=== PATIENT | male | born 1980 | race Native Hawaiian/Other Pacific Islander ===

== ENCOUNTER 2017-12-01 04:29 | Emergency (ER) | payer OTHER ==
--- NOTE | 2017-12-01 06:26 | Cat Scan Report ---
FINAL REPORT EXAM: CT HEAD/BRAIN WO CON HISTORY: fall TECHNIQUE: Routine axial imaging was obtained of the brain without IV contrast. FINDINGS: The ventricular system is appropriate in size and is symmetric. There is no evidence of acute stroke or hemorrhage. The basal cisterns appear normal. There is a right parietal scalp hematoma. There is no evidence of skull fracture. The sinuses are clear. The mastoid air cells are well pneumatized. There are several acute fractures of the nasal bone with overlying soft tissue swelling. There is also left-sided preseptal soft tissue swelling. IMPRESSION: Left-sided preseptal soft tissue swelling with acute fractures of the nasal bone. Right parietal occipital scalp hematoma without skull fracture. No evidence of acute stroke or hemorrhage.
--- NOTE | 2017-12-01 06:36 | Cat Scan Report ---
FINAL REPORT EXAM: CT FACIAL BONES WO CON HISTORY: fall TECHNIQUE: Routine axial imaging was obtained of the facial bones without IV contrast with sagittal and coronal reconstructions. FINDINGS: There is a comminuted mildly depressed fracture of the nasal bone with overlying soft tissue swelling. There is additional soft tissue swelling overlying the left preseptal area extending along the anterior wall of the left maxillary sinus. The orbital rims and floors appear intact. The sinuses are clear. The zygomatic arches and mandible appear intact. IMPRESSION: Comminuted depressed fractures of the nasal bone with overlying soft tissue swelling. Soft tissue swelling overlying the left preseptal area and extending along the anterior wall of the left maxillary sinus.
--- NOTE | 2017-12-01 06:38 | Cat Scan Report ---
FINAL REPORT EXAM: CT CERVICAL SPINE WO CON HISTORY: nexus pos TECHNIQUE: Routine axial imaging was obtained of the cervical spine without IV contrast with sagittal and coronal reconstructions. FINDINGS: C7 is not adequately seen for evaluation on the examination. C1 through C6 are well identified. The disc heights and alignment appear normal. There is no evidence of fracture. The canal size is normal. The nerve roots exit normally. The prevertebral soft tissues and C1-C2 articulation appear intact. IMPRESSION: No abnormalities identified from skull base through the inferior margin of C6. C7 is not adequately seen for evaluation on the examination
[2017-12-01 09:23] LABS: Hematocrit 47.8 % (35.5-45.6); Hemoglobin 15.8 gm/dl (11.8-15.2); Mean Corpuscular HGB Conc 33 % (32-34); Mean Corpuscular Hemoglobin 28 pg (28-32); Mean Corpuscular Volume 85 fl (84-94); Platelet Count 231 K/mm3 (140-440); Red Blood Count 5.66 M/mm3 (3.65-5.03); Red Cell Distribution Width 13.4 % (13.2-15.2)
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
[2017-12-01 09:45] LABS: Alanine Aminotransferase 78 units/L (7-56); BUN/Creatinine Ratio 16; Blood Urea Nitrogen 11 mg/dL (9-20); Calcium 9.1 mg/dL (8.4-10.2); Hemolysis Index 33
[2017-12-01 11:02] LABS: Bilirubin,Urine NEG (Negative); Blood,Urine SM (Negative); Color,Urine Yellow (Yellow); Mucus,Urine FEW /HPF; Nitrite,Urine NEG (Negative); Protein,Urine <15 mg/dL mg/dL (Negative); Urobilinogen,Urine < 2.0 mg/dL (<2.0)
[2017-12-01 11:21] LABS: Amphetamine Screen,Urine PRESUMPTIVE NEGATIVE; Benzodiazepines Screen,Urine PRESUMPTIVE NEGATIVE; Cannabinoid Screen,Urine PRESUMPTIVE NEGATIVE; Cocaine Screen,Urine PRESUMPTIVE NEGATIVE; Methadone Screen,Urine PRESUMPTIVE NEGATIVE; Opiate Screen,Urine PRESUMPTIVE NEGATIVE
[2017-12-01 11:41] VITALS: BP 127/82
[2017-12-01] MEDS ORDERED: ROCEPHIN/NS 1 GM/50 ML 1 GM/50 ML BAG IV ONE (12:49)
[2017-12-01] MEDS ORDERED: cefTRIAXone 1 GM in NACL 0.9% 20 ML IV ONE (13:00)
[2017-12-01] MEDS ORDERED: MORPHINE ONE (13:04)
[2017-12-01] MEDS ORDERED: ZOFRAN ONE (13:04)
[2017-12-01] MEDS ORDERED: ZOFRAN IM ONE (13:17)
[2017-12-01] MEDS ORDERED: MORPHINE IM ONE (13:17)
== END 2017-12-01 13:23 | disposition home or self-care (01) ==
LOC: ED 04:29
DX: S00.03XA Contusion of scalp, initial encounter (principal); S02.2XXA Fracture of nasal bones, initial encounter for closed fracture; F10.129 Alcohol abuse with intoxication, unspecified; Y90.9 Presence of alcohol in blood, level not specified; Z79.899 Other long term (current) drug therapy; V09.29XA Pedestrian injured in traffic accident involving other motor vehicles, initial encounter; Y93.01 Activity, walking, marching and hiking; Y99.8 Other external cause status; Y92.410 Unspecified street and highway as the place of occurrence of the external cause
CPT/HCPCS: 36415; 70450; 70486; 72125; 80053; 80307; 81001; 85027; 96372; 99284; G0480; J2270; J2405; 80320; J0696